=== PATIENT | female | born 1995 ===

== ENCOUNTER 2019-11-19 17:22 | Outpatient (CLI) | payer OTHER ==
[2019-11-19] MEDS ORDERED: ATABEX DHA 200200 MG PO (17:35)
== END 2019-11-19 19:40 | disposition left against medical advice (07) ==
LOC: OBS/DEL 17:22
PROVIDERS: ATTEND Obstetrics & Gynecology
DX: O26.892 Other specified pregnancy related conditions, second trimester (principal); R10.2 Pelvic and perineal pain

== ENCOUNTER 2019-11-22 06:34 | Inpatient (IN) | payer OTHER ==
[~2019-11-22] VITALS: Ht 167.6 cm; Wt 102.5 kg
[~2019-11-22 06:34] MED LIST: ATABEX DHA 200200 MG PO
[2019-11-22] MEDS ORDERED: ATABEX OB TABL1 EACH PO (11:35)
== END 2019-11-24 14:55 | disposition home or self-care (01) | DRG 807 ==
LOC: OB/GYN 06:34 → LDR 06:34 → OB/GYN 19:26
PROVIDERS: ADMIT Obstetrics & Gynecology; ATTEND Obstetrics & Gynecology
PROC: 10E0XZZ Delivery of Products of Conception, External Approach (ICD-10-PCS; principal; 2019-11-22)
PROC: 10907ZC Drainage of Amniotic Fluid, Therapeutic from Products of Conception, Via Natural or Artificial Opening (ICD-10-PCS; 2019-11-22)
PROC: 0W8NXZZ Division of Female Perineum, External Approach (ICD-10-PCS; 2019-11-22)
PROC: 3E033VJ Introduction of Other Hormone into Peripheral Vein, Percutaneous Approach (ICD-10-PCS; 2019-11-22)
PROC: 4A1HXCZ Monitoring of Products of Conception, Cardiac Rate, External Approach (ICD-10-PCS; 2019-11-22)
DX: O80 Encounter for full-term uncomplicated delivery (principal); Z37.0 Single live birth; Z3A.39 39 weeks gestation of pregnancy; Z20.828 Contact with and (suspected) exposure to other viral communicable diseases